=== PATIENT | female | born 1985 | race Caucasian/White ===

== ENCOUNTER 2018-04-03 14:35 | Observation (INO) ==
[2018-04-03] MEDS ORDERED: *HR* FentaNYL (PF) 100 MCG/2 ML VIAL IVP ONE ×2 (16:41→18:46)
[2018-04-03 16:55] LABS: Basophils # 0.1 K/mcL (0.0-0.2); Basophils % 0.3 %; Eosinophils % 0.1 %; Hematocrit 41.3 % (35.3-44.9); Hemoglobin 14.2 g/dL (11.5-15.4); Immature Granulocytes % 0.7 % (0-4); Lymphocytes # 1.5 K/mcL (0.6-4.6); Lymphocytes % 7.4 %; Mean Corpuscular HGB Conc 34.4 g/dL (31.6-35.5); Mean Corpuscular Hemoglobin 29.5 pg (28.0-33.3); Mean Corpuscular Volume 85.7 fL (83.0-100.0); Mean Platelet Volume 9.7 fL (9.4-12.4); Monocytes # 1.5 K/mcL (0.0-1.3); Monocytes % 7.5 %; Neutrophils # 17.2 K/mcL (1.6-8.9); Platelet Count 302 K/mcL (140-400); Red Blood Count 4.82 M/mcL (3.82-4.97); Red Cell Distribution Width 12.7 % (11.5-14.5)
[2018-04-03 17:14] LABS: Alanine Aminotransferase 40 Units/L (7-52); Albumin 4.5 g/dL (3.5-5.7); Albumin/Globulin Ratio 1.6 (1.1-2.2); Alkaline Phosphatase 58 Units/L (34-104); Aspartate Amino Transferase 32 Units/L (13-39); BUN/Creatinine Ratio 20 (6-26); Bilirubin,Total 0.6 mg/dL (0.3-1.0); Blood Urea Nitrogen 13 mg/dL (6-20); Calcium 9.3 mg/dL (8.6-10.3); Carbon Dioxide 24 mEq/L (23-29); Chloride 101 mEq/L (98-107); Globulin 2.9 g/dL (2.4-3.5); Glucose 136 mg/dL (70-105); Osmolality,Calculated 290 (280-300); Potassium 3.9 mEq/L (3.5-5.1); Sodium 139 mEq/L (136-145); Total Protein 7.4 g/dL (6.4-8.9); eGFR For Non-African Americans > 60 (> 60)
[2018-04-03] MEDS ORDERED: Isovue-370 500 ML INFUS..BTL IV ONE (17:20)
[2018-04-03 18:38] LABS: Bilirubin,Urine Negative (Negative); Blood,Urine Negative (Negative); Clarity,Urine Cloudy (Clear); Color,Urine Yellow (Yellow); Glucose,Urine (UA) Normal (Normal); Ketones,Urine Negative (Negative); Leukocyte Esterase,Urine Trace (Negative); Nitrite,Urine Negative (Negative); PH,Urine 7.5 pH Units (5.0-8.0); Protein,Urine 100 mg/dL (Neg-Trace); Specific Gravity,Urine 1.028 (1.010-1.025); Urobilinogen,Urine Normal (Normal)
[2018-04-03 18:40] LABS: Bacteria,Urine Many per hpf (None-Few); Squamous Epithelial Cell,Urine Many per lpf (None-Few); WBC,Urine 0-3 per hpf (0-3)
[2018-04-03] MEDS ORDERED: Piperacillin/Tazobactam 3.375 GM in 0.9 % Sodium Chloride Mini Bag 100 ML IVPB ONE (18:56)
[2018-04-03] MEDS ORDERED: 0.9 % Sodium Chloride 2,000 ML ONE (19:24)
[2018-04-03] MEDS: 0.9 % Sodium Chloride 1,000 ML IVC SCH ×2 (19:34→20:35)
--- NOTE | 2018-04-03 19:38 | Emergency Department Note ---
Disposition Clinical Impression: Acute appendicitis Qualifiers: Acute appendicitis type: with localized peritonitis Appendicitis gangrene presence: without gangrene Appendicitis perforation presence: without perforation Appendicitis abscess presence: without abscess Qualified Code(s): K35.30 - Acute appendicitis with localized peritonitis, without perforation or gangrene Disposition: Admitted As Inpatient Condition: Fair Referrals: Rishi Mustafa MD [Primary Care Provider] - Forms: ED Satisfaction Letter, Work/School Release General Adult HPI - General Chief complaint: ED Abdominal Pain Stated complaint: abd pain Time Seen by Provider: 04/03/18 15:57 Source: patient Limitations: no limitations Nursing Notes Reviewed: Yes Vital Signs Reviewed: Yes - History of Present Illness HPI Narrative: Patient is a 32-year-old female who presents the emergency department with complaints of abdominal pain primarily right-sided as well as nausea and 11 episodes of vomiting which started this morning. She states the abdominal pain is worsened by movement in the drive in an improved by nothing though he she has tried no medications for her pain. She denies any possibility of her being . She denies any fever, diarrhea, chest pain, shortness of breath, vaginal discharge or bleeding, dysuria or hematuria. She denies any sick contacts. Yesterday she had a meal of [place] food but no one else who consumes food has been found to be ill. Pain Scale: 8 - Related Data Home Medications Medication Instructions Recorded Confirmed Buspirone HCl [Buspar] 15 mg PO TID 04/03/18 04/03/18 Paroxetine [Paxil] 30 mg PO DAILY 04/03/18 04/03/18 Quetiapine Fumarate [Seroquel] 400 mg PO HS 04/03/18 04/03/18 Venlafaxine XR (24 HR) [Effexor XR] 75 mg PO DAILY 04/03/18 04/03/18 clonazePAM [Klonopin] 1 mg PO TID 04/03/18 04/03/18 Allergies Allergy/AdvReac Type Severity Reaction Status Date / Time No Known Allergies Allergy Verified 04/03/18 15:05 Review of Systems: Pertinent positives and negatives reviewed in history of present illness. All other systems reviewed and are negative or normal. Past Medical History - Past Medical History Medical history: Reports: non-contributory Surgical history: Reports: non-contributory, Psychiatric history: Reports: no psych history - Social History Smoking Status: Never smoker Smokeless Tobacco Status: No Alcohol use: Reports: none Drug use: Reports: none Physical Exam Patient's an obese white female who appears uncomfortable on exam. Tearful. - General Limitations: no limitations General appearance: alert, in distress, obese - Head Head exam: atraumatic, normocephalic - Neck Neck exam: Present: normal inspection, trachea midline - Chest Chest inspection: Present: normal inspection, symmetric chest wall rise - Respiratory Respiratory exam: Present: normal lung sounds bilaterally - Cardiovascular Cardiovascular exam: Present: regular rate, normal rhythm, normal heart sounds - Abdominal Exam Abdominal exam: Present: soft, tenderness (Right upper quadrant and right lower quadrant), normal bowel sounds, tenderness at McBurney's Point. Absent: distention, guarding, rebound, rigidity, Rovsing's sign - Extremities Exam Extremities exam: Present: normal inspection. Absent: pedal edema - Back Exam Back exam: Absent: CVA tenderness (R), CVA tenderness (L) - Neurological Exam Neurological exam: Present: alert, oriented X3 - Psychiatric Psychiatric exam: Present: normal affect, normal mood - Skin Skin exam: Present: warm, dry, intact Course Course Narrative: Uncomfortable appearing 32-year-old. She is tachycardic. Pain primarily in the right upper and lower quadrant. We will obtain CBC, CMP, UA, urine test. May require right upper quadrant ultrasound versus CT abdomen to rule out appendicitis versus cholecystitis. - Reevaluation(s) Reevaluation #1: CT findings significant for acute appendicitis. Discussed case with general surgery, Dr. Hughes who will come to evaluate the patient Time: 18:52 Reevaluation #2: General surgery in the ED to assess the patient and will accept admission. We will give 2 L bolus in the meantime. Time: 19:21 Vital Signs Temperature 98.2 F 04/03/18 15:04 Pulse Rate 125 04/03/18 15:04 Respiratory Rate 20 04/03/18 15:04 Blood Pressure 187/102 04/03/18 15:04 O2 Sat by Pulse Oximetry 96 04/03/18 15:04 Temperature 98.2 F 04/03/18 16:13 Pulse Rate 124 04/03/18 18:14 Respiratory Rate 18 04/03/18 18:14 Blood Pressure 132/77 04/03/18 18:14 O2 Sat by Pulse Oximetry 98 04/03/18 18:14 Oxygen Delivery Oxygen Delivery Room Air Medical Decision Making - MDM Narrative Medical decision making narrative: 32-year-old female presenting with multiple episodes of nausea vomiting and right lower quadrant pain. Physical exam significant for pain at McBurney's point as well as equivocal Oliveira sign. She significantly tachycardic and tearful on exam. CBC reveals leukocytosis to 20.5 with a left shift, urine test negative, LFTs negative. CT abdomen reveals acute appendicitis without, patient. Patient made nothing by mouth though her last meal was last night. 1 g Mefoxin given. Discussed case with general surgery who will come to evaluate the patient to determine need for immediate surgery - Medical Records Medical records reviewed: Yes I reviewed the patient's medical records. - Lab Data Lab results reviewed: Yes I reviewed the patient's lab results. Result diagrams: 04/03/18 16:43 04/03/18 16:43 Lab Results 04/03/18 04/03/18 04/03/18 Range/Units 16:43 16:43 16:43 WBC 20.5 H (4.3-11.1) K/mcL RBC 4.82 (3.82-4.97) M/mcL Hgb 14.2 (11.5-15.4) g/dL Hct 41.3 (35.3-44.9) % MCV 85.7 (83.0-100.0) fL MCH 29.5 (28.0-33.3) pg MCHC 34.4 (31.6-35.5) g/dL RDW 12.7 (11.5-14.5) % Plt Count 302 (140-400) K/mcL MPV 9.7 (9.4-12.4) fL Immature Gran % 0.7 (0-4) % Seg Neutrophils % 84.0 % Lymphocytes % 7.4 % Monocytes % 7.5 % Eosinophils % 0.1 % Basophils % 0.3 % Neutrophils # 17.2 H (1.6-8.9) K/mcL Lymphocytes # 1.5 (0.6-4.6) K/mcL Monocytes # 1.5 H (0.0-1.3) K/mcL Eosinophils # 0.0 (0.0-0.6) K/mcL Basophils # 0.1 (0.0-0.2) K/mcL Sodium 139 (136-145) mEq/L Potassium 3.9 (3.5-5.1) mEq/L Chloride 101 (98-107) mEq/L Carbon Dioxide 24 (23-29) mEq/L BUN 13 (6-20) mg/dL Creatinine 0.64 (0.60-1.20) mg/dL Est GFR ( Amer) > 60 (> 60) Est GFR (Non-Af Amer) > 60 (> 60) BUN/Creatinine Ratio 20 (6-26) Glucose 136 H (70-105) mg/dL Calculated Osmolality 290 (280-300) Calcium 9.3 (8.6-10.3) mg/dL Total Bilirubin 0.6 (0.3-1.0) mg/dL AST 32 (13-39) Units/L ALT 40 (7-52) Units/L Alkaline Phosphatase 58 (34-104) Units/L Serum Total Protein 7.4 (6.4-8.9) g/dL Albumin 4.5 (3.5-5.7) g/dL Globulin 2.9 (2.4-3.5) g/dL Albumin/Globulin Ratio 1.6 (1.1-2.2) Serum , Qual Negative (Negative) Urine Color (Yellow) Urine Clarity (Clear) Urine pH (5.0-8.0) pH Units Ur Specific [place] (1.010-1.025) Urine Protein (Neg-Trace) mg/dL Urine Glucose (UA) (Normal) mg/dL Urine Ketones (Negative) mg/dL Urine Blood (Negative) Urine Nitrite (Negative) Urine Bilirubin (Negative) Urine Urobilinogen (Normal) mg/dL Ur Leukocyte Esterase (Negative) Urine Microscopic RBC (0-3) per hpf Urine Microscopic WBC (0-3) per hpf Ur Squamous Epith Cells (None-Few) per lpf Urine Bacteria (None-Few) per hpf Ur Culture Indicated? (NO) 04/03/18 Range/Units 18:20 WBC (4.3-11.1) K/mcL RBC (3.82-4.97) M/mcL Hgb (11.5-15.4) g/dL Hct (35.3-44.9) % MCV (83.0-100.0) fL MCH (28.0-33.3) pg MCHC (31.6-35.5) g/dL RDW (11.5-14.5) % Plt Count (140-400) K/mcL MPV (9.4-12.4) fL Immature Gran % (0-4) % Seg Neutrophils % % Lymphocytes % % Monocytes % % Eosinophils % % Basophils % % Neutrophils # (1.6-8.9) K/mcL Lymphocytes # (0.6-4.6) K/mcL Monocytes # (0.0-1.3) K/mcL Eosinophils # (0.0-0.6) K/mcL Basophils # (0.0-0.2) K/mcL Sodium (136-145) mEq/L Potassium (3.5-5.1) mEq/L Chloride (98-107) mEq/L Carbon Dioxide (23-29) mEq/L BUN (6-20) mg/dL Creatinine (0.60-1.20) mg/dL Est GFR ( Amer) (> 60) Est GFR (Non-Af Amer) (> 60) BUN/Creatinine Ratio (6-26) Glucose (70-105) mg/dL Calculated Osmolality (280-300) Calcium (8.6-10.3) mg/dL Total Bilirubin (0.3-1.0) mg/dL AST (13-39) Units/L ALT (7-52) Units/L Alkaline Phosphatase (34-104) Units/L Serum Total Protein (6.4-8.9) g/dL Albumin (3.5-5.7) g/dL Globulin (2.4-3.5) g/dL Albumin/Globulin Ratio (1.1-2.2) Serum , Qual (Negative) Urine Color Yellow (Yellow) Urine Clarity Cloudy A (Clear) Urine pH 7.5 (5.0-8.0) pH Units Ur Specific [place] 1.028 H (1.010-1.025) Urine Protein 100 H (Neg-Trace) mg/dL Urine Glucose (UA) Normal (Normal) mg/dL Urine Ketones Negative (Negative) mg/dL Urine Blood Negative (Negative) Urine Nitrite Negative (Negative) Urine Bilirubin Negative (Negative) Urine Urobilinogen Normal (Normal) mg/dL Ur Leukocyte Esterase Trace H (Negative) Urine Microscopic RBC 3-5 H (0-3) per hpf Urine Microscopic WBC 0-3 (0-3) per hpf Ur Squamous Epith Cells Many H (None-Few) per lpf Urine Bacteria Many H (None-Few) per hpf Ur Culture Indicated? NO. A (NO) - Radiology Data Radiology results reviewed: Yes I reviewed the patient's radiology results. Attestation Statement - Attestation Attestation: I examined this patient and my medical decision-making was reviewed with the Resident Physician, Dr. Her. I agree with the documented findings, disposition and treatment plan as described except to the extent set forth below. Patient is a 32-year-old white female who presents seem or permit today with right-sided abdominal pain and intractable nausea and vomiting since waking this morning. Patient denies any fevers or chills felt fine at the time that she went to bed, no associated diarrhea. No urinary symptoms or flank pain. Patient is tachycardic and hypertensive on arrival but appears uncomfortable secondary to discomfort in the right side of her belly. I agree with patient's physical exam findings as documented. She underwent full lab evaluation, urinalysis with test, CT abdomen and pelvis imaging and received IV pain and nausea medications as well as IV fluids for the tachycardia. Patient's lab evaluation shows a leukocytosis with left shift otherwise within normal limits. CT abdomen and pelvis shows acute appendicitis without, locati on. Patient was made nothing by mouth IV antibiotics were initiated IV fluids were continued and Dr. Hughes was contacted assaulted for surgical management. She came to evaluate the patient in the ED and will take the patient to the OR for an appendectomy. Patient was admitted to the surgical service.
[2018-04-03] MEDS ORDERED: Lidocaine -MPF 4% 5 ML AMPUL ONE (19:47)
[2018-04-03] MEDS ORDERED: Propofol 500 MG/50 ML INFUS..BTL ONE (19:47)
[2018-04-03] MEDS ORDERED: *HR* Succinylcholine 200 MG/10 ML VIAL IVP ONE (19:47)
[2018-04-03] MEDS ORDERED: Lidocaine -MPF 2% 2 ML VIAL ONE (19:47)
[2018-04-03] MEDS ORDERED: *HR* Rocuronium Bromide 50 MG/5 ML VIAL ONE (19:47)
--- NOTE | 2018-04-03 19:48 | General Surg History&Physical ---
Date of Encounter: 04/03/18 Time of Encounter: 19:39 Assessment and Plan (1) Acute appendicitis Current Visit: Yes Status: Acute The assessment and plan as outlined above was discussed with the patient and/or family members who expressed understanding and agreement. All questions were answered. discussed with patient CT scan images, labs and her physical findings, she has acute appendicitis, will plan laparoscopic appendectomy, possible open, risks and benefits discussed and she wishes to proceed npo prn pain control ivf hydration prn antiemetics gi/dvt prophylaxis ok to continue home medication antibiotics Qualifiers: Acute appendicitis type: with localized peritonitis Appendicitis gangrene presence: without gangrene Appendicitis perforation presence: without perforation Appendicitis abscess presence: without abscess Qualified Code(s): K35.30 - Acute appendicitis with localized peritonitis, without p erforation or gangrene (2) Leukocytosis Current Visit: Yes Status: Acute The assessment and plan as outlined above was discussed with the patient and/or family members who expressed understanding and agreement. All questions were answered. antibiotics trend wbc Qualifiers: Leukocytosis type: unspecified Qualified Code(s): D72.829 - Elevated white blood cell count, unspecified (3) Anxiety Current Visit: Yes Status: Chronic The assessment and plan as outlined above was discussed with the patient and/or family members who expressed understanding and agreement. All questions were answered. ok to continue home meds History of Present Illness Chief complaint: abdominal pain HPI: Ms. Ojeda is a 32 year old female who started having sharp achy RLQ pain this am. She had nausea and emesis this am, no nausea currently. She denies fevers or chills but is having sweats. Denies diarrhea. No dysuria. Presented to ED due to the pain. CT scan showed uncomplicated acute appendicitis with elevated WBC at 20. Past Med Surg Social Fam HX - Past Medical History Source: patient Medical history: non-contributory, other (obesity) Psychiatric history: anxiety - Past Surgical History Surgical History: (x3), other (sinus surgery second to polyps) - Social History Smoking Status: Never smoker Smokeless Tobacco Status: No Alcohol use: none Drug use: none Current living situation: Home - Independent, With Family Activity Level: Independent ambulation - Family History Grandmother History Unknown: Yes Medications and Allergies Buspirone HCl [Buspar] 15 mg PO TID 04/03/18 [History] Paroxetine [Paxil] 30 mg PO DAILY 04/03/18 [History] Quetiapine Fumarate [Seroquel] 400 mg PO HS 04/03/18 [History] Venlafaxine XR (24 HR) [Effexor XR] 75 mg PO DAILY 04/03/18 [History] clonazePAM [Klonopin] 1 mg PO TID 04/03/18 [History] Allergy/AdvReac Type Severity Reaction Status Date / Time No Known Allergies Allergy Verified 04/03/18 15:05 Review of Systems All systems PM: reviewed and no additional remarkable complaints except as stated All systems PM: The remainder of the systems were reviewed and are negative General Surgery Exam Initial Vital Signs Temp Pulse Resp BP Pulse Ox 98.2 F 125 20 187/102 96 04/03/18 15:04 04/03/18 15:04 04/03/18 15:04 04/03/18 15:04 04/03/18 15:04 - General physical appearance well developed, moderate distress, moderate pain, obese - Eyes PERRL, normal ocular movement - ENT normal mucosa, normocephalic - Neck trachea midline - Respiratory normal expansion, clear to auscultation - Cardiovascular Cardiovascular exam: Present: tachycardia, no murmurs/rubs/gallops - Abdomen Abdomen general surgery: Present: soft, tender. Absent: bowel sounds present, distended, guarding, rebound Abdominal Tenderness: Present: RLQ - Integumentary Integumentary general surgery: Present: diaphoresis - Neurologic Present: CN 2-12 grossly intact - Musculoskeletal Present: normal posture - Psychiatric Psychiatric general surgery: Present: A&Ox3, speech is normal Results - Labs 04/03/18 16:43 04/03/18 16:43 Abnormal lab results WBC 20.5 K/mcL (4.3-11.1) H 04/03/18 16:43 Neutrophils # 17.2 K/mcL (1.6-8.9) H 04/03/18 16:43 Monocytes # 1.5 K/mcL (0.0-1.3) H 04/03/18 16:43 Glucose 136 mg/dL (70-105) H 04/03/18 16:43 Urine Clarity Cloudy (Clear) A 04/03/18 18:20 Ur Specific [place] 1.028 (1.010-1.025) H 04/03/18 18:20 Urine Protein 100 mg/dL (Neg-Trace) H 04/03/18 18:20 Ur Leukocyte Esterase Trace (Negative) H 04/03/18 18:20 Urine Microscopic RBC 3-5 per hpf (0-3) H 04/03/18 18:20 Ur Squamous Epith Cells Many per lpf (None-Few) H 04/03/18 18:20 Urine Bacteria Many per hpf (None-Few) H 04/03/18 18:20 Ur Culture Indicated? NO. (NO) A 04/03/18 18:20 Diabetes panel 04/03/18 Range/Units 16:43 Sodium 139 (136-145) mEq/L Potassium 3.9 (3.5-5.1) mEq/L Chloride 101 (98-107) mEq/L Carbon Dioxide 24 (23-29) mEq/L BUN 13 (6-20) mg/dL Creatinine 0.64 (0.60-1.20) mg/dL Glucose 136 H (70-105) mg/dL Calcium 9.3 (8.6-10.3) mg/dL AST 32 (13-39) Units/L ALT 40 (7-52) Units/L Alkaline Phosphatase 58 (34-104) Units/L Albumin 4.5 (3.5-5.7) g/dL Calcium panel 04/03/18 Range/Units 16:43 Calcium 9.3 (8.6-10.3) mg/dL Albumin 4.5 (3.5-5.7) g/dL Pituitary panel 04/03/18 Range/Units 16:43 Sodium 139 (136-145) mEq/L Potassium 3.9 (3.5-5.1) mEq/L Chloride 101 (98-107) mEq/L Carbon Dioxide 24 (23-29) mEq/L BUN 13 (6-20) mg/dL Creatinine 0.64 (0.60-1.20) mg/dL Glucose 136 H (70-105) mg/dL Calcium 9.3 (8.6-10.3) mg/dL Adrenal panel 04/03/18 Range/Units 16:43 Sodium 139 (136-145) mEq/L Potassium 3.9 (3.5-5.1) mEq/L Chloride 101 (98-107) mEq/L Carbon Dioxide 24 (23-29) mEq/L BUN 13 (6-20) mg/dL Creatinine 0.64 (0.60-1.20) mg/dL Glucose 136 H (70-105) mg/dL Calcium 9.3 (8.6-10.3) mg/dL Total Bilirubin 0.6 (0.3-1.0) mg/dL AST 32 (13-39) Units/L ALT 40 (7-52) Units/L Alkaline Phosphatase 58 (34-104) Units/L Albumin 4.5 (3.5-5.7) g/dL All other labs normal. - Imaging CT scan - abdomen: report reviewed, image reviewed CT scan - pelvis: report reviewed, image reviewed
--- NOTE | 2018-04-03 19:48 | Anesthesia Evaluation PreOp ---
Date of Encounter: 04/03/18 Time of Encounter: 19:44 - Past History Planned Operation: Lap appendectomy Cardiac History: Denies any Significant Hx Pulmonary History: Denies Any Significant HX [employer]MENT History: Other (anxiety, depression) Other Medical History: Denies Any Significant HX, Other (BMI 49) Anesthesia History: No Prior Anesthetic Complications, Past Anesthesia (sinus, csection) Test: Negative (today) Alcohol Use: none Drug use: none Medications and Allergies Buspirone HCl [Buspar] 15 mg PO TID 04/03/18 [History] Paroxetine [Paxil] 30 mg PO DAILY 04/03/18 [History] Quetiapine Fumarate [Seroquel] 400 mg PO HS 04/03/18 [History] Venlafaxine XR (24 HR) [Effexor XR] 75 mg PO DAILY 04/03/18 [History] clonazePAM [Klonopin] 1 mg PO TID 04/03/18 [History] Allergy/AdvReac Type Severity Reaction Status Date / Time No Known Allergies Allergy Verified 04/03/18 15:05 - Meds/Allergy Pre-op Review Medications Reviewed: Yes Allergies Reviewed: Yes Beta Blockers on Current Med List: No Anesthesia Results - Labs 04/03/18 16:43 04/03/18 16:43 Anesthesia Exam Vital Signs/O2 Sat, Most Current Temp Pulse Resp BP Pulse Ox 98.2 F 124 18 132/77 98 04/03/18 16:13 04/03/18 18:14 04/03/18 18:14 04/03/18 18:14 04/03/18 18:14 Weight: 127kg NPO (# of Hours): >8 - HEENT Pupil (Motor): Pupils equal, EOMI Mallampati: III Oral Opening: Greater than 3 - [employer] LOC: Oriented [employer] Motor: Normal RUE, Normal LUE, Normal RLE, Normal LLE, Normal Face [employer] Sensory: Normal: RUE, LUE, RLE, LLE, Face - Cardiac Rhythm: Regular - Pulmonary Breath Sounds: bilateral Clear Respiratory Effort: Symmetrical Anesthesia Assess/Plan ASA Score: 3 (BMI 49), E Modified Madelyn Scale for Level of Consciousness: Cooperative, oriented, and tranquil Anesthetic Plan: General (GETA with RSI) Monitoring Plan: Standard Monitors Recovery Plan: PACU
[2018-04-03] MEDS ORDERED: *HR* FentaNYL (PF) 100 MCG/2 ML VIAL ONE ×2 (19:49→21:57)
[2018-04-03] MEDS ORDERED: Acetaminophen IV 1,000 MG/100 ML INFUS..BTL ONE (20:57)
[2018-04-03] MEDS ORDERED: SUGAMMADEX SODIUM 500 MG/5 ML VIAL IV ONE (21:05)
[2018-04-03] MEDS ORDERED: *HR* HYDROmorphone (PF) 1 MG/ML SYRINGE IVP PRN (21:23)
[2018-04-03] MEDS ORDERED: *HR* Promethazine 25 MG/ML VIAL IVP PRN ×2 (21:23→23:00)
[2018-04-03] MEDS ORDERED: *HR* Meperidine 25 MG/ML SYRINGE IVP PRN (21:23)
[2018-04-03] MEDS ORDERED: *HR* OxyCODONE Immed Rel 5 MG TABLET PO PRN (21:23)
[2018-04-03] MEDS ORDERED: Ondansetron 4 MG/2 ML VIAL IVP ONE (21:23)
[2018-04-03] MEDS ORDERED: Ringers Solution, Lactated 1,000 ML IVC SCH (21:30)
--- NOTE | 2018-04-03 22:26 | Operative Note ---
Date of procedure: 04/03/18 Pre-op diagnosis: Acute appendicitis Post-op diagnosis: same Procedure: Laparoscopic appendectomy Complications: none immediate Anesthesia: GETA, local Local Anesthetics: 0.5% Sensorcaine HCL SubQ (cc) (30) Surgeon: April Sawyer Was there an environmental engineering assistant present: No Crane Engineer Other: Maddie Riley Estimated blood loss (cc): 10 Specimen: appendix Condition: stable Disposition: PACU Procedure in Detail: The patient was brought into the operating suite and placed supine on the operating table. Sign-in was performed and everyone was in agreement. Anesthesia was induced and patient was endotracheally intubated by anesthesia without incident. An OG tube was placed by anesthesia. The abdomen was prepped and draped in the usual sterile fashion. A timeout was performed and again everyone was in agreement. A supraumbilical incision was made through the skin and the subcutaneous tissue with an 11 blade. Towel clamps were placed on either side of the umbilicus for retraction. S-retractors were used to dissect down to the anterior abdominal wall linea alba fascia. A Veress needle was placed into this incision and a water drop test confirmed placement and the ab domen was insufflated. We then entered the abdomen with the 5 mm 0 degree laparoscope on a 5 mm X-theresa trocar. The area under entry was visualized and there was no bleeding and no apparent bowel injury. We placed a suprapubic 5 mm port under direct visualization after first incising the skin with an 11 blade. The laparoscope was placed through this and we exchanged the supraumbilical port for a 12 mm port under direct visualization. We then placed another 5 mm port in the left lower quadrant position under direct visualization after first incising the skin with an 11 blade. The patient was placed in slight Trendelenburg left side down position. The cecum was located as was the appendix. The appendix was grasped and retracted anteriorly and caudally with a laparoscopic Naun. A [place] was used to dissect between the mesoappendix and the appendix at the base of the cecum. The mesoappendix was transected with a laparoscopic flex-ex ETS stapler using a white load x2. The appendix was transected at the base of the cecum with the same stapler utilizing a white load x2. The appendix was placed in a laparoscopic Endo Catch bag and removed via the supraumbilical incision site. Both staple lines were evaluated and there was no bleeding and both staple lines were intact. The area was irrigated with sterile saline which was then suctioned free from the abdomen. The insufflation was suctioned free from the abdomen and all trochars removed. We closed the abdominal wall at the supraumbilical incision site with an 0 Vicryl [id number] stitch. A 30 cc of 0.5% Marcaine was injected subcutaneously at the 3 port sites. The skin at the two 5 mm port sites was closed with 4-0 Monocryl interrupted subcuticular stitches. The skin at the supraumbilical incision site was closed with a 4-0 Monocryl running subcuticular stitch. Steri-Strips were applied to the wounds. The patient was extubated in the OR and tolerated the procedure well and was taken to PACU after all lap and instrument counts were correct at the end of the case.
[2018-04-03] MEDS ORDERED: Ondansetron 4 MG/2 ML VIAL IVP PRN (23:00)
[2018-04-03] MEDS ORDERED: Naloxone 0.4 MG/ML INJ IVP PRN (23:00)
[2018-04-03] MEDS ORDERED: OXYCODONE Oral CONC 10 MG/0.5 ML ORAL.SYG SL PRN (23:00)
[2018-04-03] MEDS ORDERED: Acetaminophen IV 1,000 MG/100 ML INFUS..BTL IVPB ONE (23:00)
--- NOTE | 2018-04-03 23:15 | Anesthesia Evaluation Post Op ---
Date of Encounter: 04/03/18 Time of Encounter: 23:14 - Vital Signs Vital Signs: Vital Signs/O2 Sat, Most Current Temp Pulse Resp BP Pulse Ox 99.3 F 118 18 131/70 95 04/03/18 23:04 04/03/18 23:04 04/03/18 23:04 04/03/18 23:04 04/03/18 23:04 - Lungs Lungs: Clear Ascult./Percussion - Airway Airway: Non-obstructed - Cardiovascular Regular Rate - Mental Status Mental Status: Alert & Oriented, Answers Appropriately - Pain Pain Scale: 0 Pain Scale used: Numeric (1 - 10) - Nausea Vomiting Nausea Vomiting: Not Present - Hydration Hydration: Ice chips - Discharge PostOp Status: Transfer Patient to floor
[2018-04-04] MEDS: 0.9 % Sodium Chloride 1,000 ML IVC SCH ×2 (00:04→15:47)
[2018-04-04] MEDS: Piperacillin/Tazobactam 3.375 GM in 0.9 % Sodium Chloride Mini Bag 100 ML IVPB SCH ×3 (00:51→15:46)
[2018-04-04 06:09] LABS: Basophils % 0.2 %; Eosinophils % 0.1 %; Hematocrit 38.1 % (35.3-44.9); Hemoglobin 12.8 g/dL (11.5-15.4); Immature Granulocytes % 0.8 % (0-4); Lymphocytes # 1.6 K/mcL (0.6-4.6); Lymphocytes % 8.5 %; Mean Corpuscular HGB Conc 33.6 g/dL (31.6-35.5); Mean Corpuscular Hemoglobin 29.8 pg (28.0-33.3); Mean Corpuscular Volume 88.6 fL (83.0-100.0); Mean Platelet Volume 9.7 fL (9.4-12.4); Monocytes % 5.5 %; Neutrophils # 15.6 K/mcL (1.6-8.9); Platelet Count 290 K/mcL (140-400); Red Cell Distribution Width 13.4 % (11.5-14.5); Segmented Neutrophils % 84.9 %
[2018-04-04 06:29] LABS: BUN/Creatinine Ratio 18 (6-26); Blood Urea Nitrogen 11 mg/dL (6-20); Calcium 8.6 mg/dL (8.6-10.3); Carbon Dioxide 26 mEq/L (23-29); Chloride 106 mEq/L (98-107); Glucose 152 mg/dL (70-105); Osmolality,Calculated 294 (280-300); Sodium 141 mEq/L (136-145); eGFR For Non-African Americans > 60 (> 60)
[2018-04-04] MEDS ORDERED: Pantoprazole 40 MG VIAL IVP SCH (09:00)
--- NOTE | 2018-04-04 10:07 | Discharge Summary ---
<April Sawyer - Last Filed: 04/04/18 10:05> Orders not resulted at time of discharge: Pending orders 04/03/18 22:19 Surgical Pathology [PTH] Routine Date of Encounter: 04/04/18 Time of Encounter: 10:08 - Discharge Diagnosis (1) Acute appendicitis Priority: Primary Status: Acute Qualifiers: Acute appendicitis type: with localized peritonitis Appendicitis gangrene presence: without gangrene Appendicitis perforation presence: without perforation Appendicitis abscess presence: without abscess Qualified Code(s): K35.30 - Acute appendicitis with localized peritonitis, without perforation or gangrene (2) Leukocytosis Priority: Secondary Status: Acute Qualifiers: Leukocytosis type: unspecified Qualified Code(s): D72.829 - Elevated white blood cell count, unspecified (3) Anxiety Priority: Secondary Status: Chronic General Surgery Exam Initial Vital Signs Temp Pulse Resp BP Pulse Ox 98.2 F 125 20 187/102 96 04/03/18 15:04 04/03/18 15:04 04/03/18 15:04 04/03/18 15:04 04/03/18 15:04 - General physical appearance well developed, well nourished, no distress, moderate pain, obese - Eyes PERRL, normal ocular movement - ENT normal mucosa, normocephalic - Respiratory normal expansion, normal respiratory effort - Cardiovascular Cardiovascular exam: Present: tachycardia - Abdomen Abdomen general surgery: Present: bowel sounds present, soft, tender (appropriate post op tenderness). Absent: distended, guarding, rebound - Incision Incision: Present: clean and dry, intact - Integumentary Integumentary general surgery: Present: warm and dry - Neurologic Present: CN 2-12 grossly intact - Musculoskeletal Present: normal posture - Psychiatric Psychiatric general surgery: Present: A&Ox3, speech is normal - Hospital Course Hospital course: Ms. Ojeda is a 32 year old female admitted with acute appendicitis. She underwent an uncomplicated laparoscopic appendectomy on 04/03/2018. She was treated with antibiotics. Postoperatively she felt significantly improved abdominal pain. Postoperatively she was tolerating a diet, ambulating well, having appropriate bowel and bladder function. She was discharged home in stable condition with prescriptions for Percocet, Colace, Bactrim. - Time Spent with Patient Total time spent providing and/or coordinating discharge services: Less than 30 minutes - Discharge Medications Prescriptions: OxyCODONE/APAP 5/325 [Percocet 5/325 MG] 1 each PO Q6HR PRN 7 Days #20 tablet PRN Reason: Pain Docusate [Colace] 100 mg PO BID #20 capsule Sulfamethoxazole/Trimeth DS [Bactrim DS] 1 each PO DAILY #10 tablet Home Medications: Buspirone HCl [Buspar] 15 mg PO TID 04/03/18 [History] Paroxetine [Paxil] 30 mg PO DAILY 04/03/18 [History] Quetiapine Fumarate [Seroquel] 400 mg PO HS 04/03/18 [History] Venlafaxine XR (24 HR) [Effexor XR] 75 mg PO DAILY 04/03/18 [History] clonazePAM [Klonopin] 1 mg PO TID 04/03/18 [History] Docusate [Colace] 100 mg PO BID #20 capsule 04/04/18 [Rx] OxyCODONE/APAP 5/325 [Percocet 5/325 MG] 1 each PO Q6HR PRN 7 Days #20 tablet 04/04/18 [Rx] Sulfamethoxazole/Trimeth DS [Bactrim DS] 1 each PO DAILY #10 tablet 04/04/18 [Rx] Allergies/Adverse Reactions: Allergy/AdvReac Type Severity Reaction Status Date / Time No Known Allergies Allergy Verified 04/03/18 15:05 Date of admission: 04/03/18 21:08 Primary care physician: Rishi Mustafa MD Discharging clinician: April Sawyer Anticipated date of discharge: 04/04/18 Labs on day of discharge: Labs from last 24 hours 04/04/18 04/04/18 04/03/18 05:34 05:34 18:20 WBC 18.3 H RBC 4.30 Hgb 12.8 Hct 38.1 MCV 88.6 MCH 29.8 MCHC 33.6 RDW 13.4 Plt Count 290 MPV 9.7 Immature Gran % 0.8 Seg Neutrophils % 84.9 Lymphocytes % 8.5 Monocytes % 5.5 Eosinophils % 0.1 Basophils % 0.2 Neutrophils # 15.6 H Lymphocytes # 1.6 Monocytes # 1.0 Eosinophils # 0.0 Basophils # 0.0 Sodium 141 Potassium 4.0 Chloride 106 Carbon Dioxide 26 BUN 11 Creatinine 0.62 Est GFR ( Amer) > 60 Est GFR (Non-Af Amer) > 60 BUN/Creatinine Ratio 18 Glucose 152 H Calculated Osmolality 294 Calcium 8.6 Total Bilirubin AST ALT Alkaline Phosphatase Serum Total Protein Albumin Globulin Albumin/Globulin Ratio Serum , Qual Urine Color Yellow Urine Clarity Cloudy A Urine pH 7.5 Ur Specific [place] 1.028 H Urine Protein 100 H Urine Glucose (UA) Normal Urine Ketones Negative Urine Blood Negative Urine Nitrite Negative Urine Bilirubin Negative Urine Urobilinogen Normal Ur Leukocyte Esterase Trace H Urine Microscopic RBC 3-5 H Urine Microscopic WBC 0-3 Ur Squamous Epith Cells Many H Urine Bacteria Many H Ur Culture Indicated? NO. A 04/03/18 04/03/18 04/03/18 16:43 16:43 16:43 WBC 20.5 H RBC 4.82 Hgb 14.2 Hct 41.3 MCV 85.7 MCH 29.5 MCHC 34.4 RDW 12.7 Plt Count 302 MPV 9.7 Immature Gran % 0.7 Seg Neutrophils % 84.0 Lymphocytes % 7.4 Monocytes % 7.5 Eosinophils % 0.1 Basophils % 0.3 Neutrophils # 17.2 H Lymphocytes # 1.5 Monocytes # 1.5 H Eosinophils # 0.0 Basophils # 0.1 Sodium 139 Potassium 3.9 Chloride 101 Carbon Dioxide 24 BUN 13 Creatinine 0.64 Est GFR ( Amer) > 60 Est GFR (Non-Af Amer) > 60 BUN/Creatinine Ratio 20 Glucose 136 H Calculated Osmolality 290 Calcium 9.3 Total Bilirubin 0.6 AST 32 ALT 40 Alkaline Phosphatase 58 Serum Total Protein 7.4 Albumin 4.5 Globulin 2.9 Albumin/Globulin Ratio 1.6 Serum , Qual Negative Urine Color Urine Clarity Urine pH Ur Specific [place] Urine Protein Urine Glucose (UA) Urine Ketones Urine Blood Urine Nitrite Urine Bilirubin Urine Urobilinogen Ur Leukocyte Esterase Urine Microscopic RBC Urine Microscopic WBC Ur Squamous Epith Cells Urine Bacteria Ur Culture Indicated? - Impressions ITS Impressions Abdomen/Pelvis CT 04/03/18 17:20 IMPRESSION: Findings compatible with acute appendicitis. D/ / Corwin Yates MD / Corwin Yates MD Interpreting Provider: Corwin Yates MD - Patient Status Disposition: Home, Self-Care Condition: Fair Overall status at discharge: patient is back to baseline - Ambulatory Orders Ambulatory Orders: Complete Blood Count [HEME] Time Frame: 1 Week, Facility: [facility], Location: Lab - Discharge Instructions Instructions: Laparoscopic Appendectomy (DC) Follow Up With: Rishi Mustafa MD [Primary Care Provider] - April Sawyer MD [Partnered Physician] - (in 1 week or Shital rocha) Additional Instructions: No lifting more than 20 pounds for 2 weeks. Okay to take a shower in 24 hours. No tub baths or pools for 1 week. Okay to ride in the car wearing a seatbelt and climb steps. No driving until off narcotics for 24 hours and able to react safely Remove Steri-Strips in 1 week Do not take pain medicine/narcotics on an empty stomach it will likely cause nausea and possibly vomiting. If pain medication is too strong okay to break in half - Diet and Activity Activity: increase activity as tolerated Diet: advance to your usual diet - Attending Attestation I examined this patient and my medical decision-making was reviewed with the Resident Physician. I agree with the documented findings, disposition and treatment plan as described except to the extent set forth below. <Tano Anna - Last Filed: 04/04/18 13:14> Orders not resulted at time of discharge: Pending orders 04/03/18 22:19 Surgical Pathology [PTH] Routine General Surgery Exam Initial Vital Signs Temp Pulse Resp BP Pulse Ox 98.2 F 125 20 187/102 96 04/03/18 15:04 04/03/18 15:04 04/03/18 15:04 04/03/18 15:04 04/03/18 15:04 - Hospital Course Hospital course: Ms. Ojeda is a 32 year old female - Time Spent with Patient Total time spent providing and/or coordinating discharge services: Date of admission: 04/03/18 21:08 Primary care physician: Rishi Mustafa MD Labs on day of discharge: Labs from last 24 hours 04/04/18 04/04/18 04/03/18 05:34 05:34 18:20 WBC 18.3 H RBC 4.30 Hgb 12.8 Hct 38.1 MCV 88.6 MCH 29.8 MCHC 33.6 RDW 13.4 Plt Count 290 MPV 9.7 Immature Gran % 0.8 Seg Neutrophils % 84.9 Lymphocytes % 8.5 Monocytes % 5.5 Eosinophils % 0.1 Basophils % 0.2 Neutrophils # 15.6 H Lymphocytes # 1.6 Monocytes # 1.0 Eosinophils # 0.0 Basophils # 0.0 Sodium 141 Potassium 4.0 Chloride 106 Carbon Dioxide 26 BUN 11 Creatinine 0.62 Est GFR ( Amer) > 60 Est GFR (Non-Af Amer) > 60 BUN/Creatinine Ratio 18 Glucose 152 H Calculated Osmolality 294 Calcium 8.6 Total Bilirubin AST ALT Alkaline Phosphatase Serum Total Protein Albumin Globulin Albumin/Globulin Ratio Serum , Qual Urine Color Yellow Urine Clarity Cloudy A Urine pH 7.5 Ur Specific [place] 1.028 H Urine Protein 100 H Urine Glucose (UA) Normal Urine Ketones Negative Urine Blood Negative Urine Nitrite Negative Urine Bilirubin Negative Urine Urobilinogen Normal Ur Leukocyte Esterase Trace H Urine Microscopic RBC 3-5 H Urine Microscopic WBC 0-3 Ur Squamous Epith Cells Many H Urine Bacteria Many H Ur Culture Indicated? NO. A 04/03/18 04/03/18 04/03/18 16:43 16:43 16:43 WBC 20.5 H RBC 4.82 Hgb 14.2 Hct 41.3 MCV 85.7 MCH 29.5 MCHC 34.4 RDW 12.7 Plt Count 302 MPV 9.7 Immature Gran % 0.7 Seg Neutrophils % 84.0 Lymphocytes % 7.4 Monocytes % 7.5 Eosinophils % 0.1 Basophils % 0.3 Neutrophils # 17.2 H Lymphocytes # 1.5 Monocytes # 1.5 H Eosinophils # 0.0 Basophils # 0.1 Sodium 139 Potassium 3.9 Chloride 101 Carbon Dioxide 24 BUN 13 Creatinine 0.64 Est GFR ( Amer) > 60 Est GFR (Non-Af Amer) > 60 BUN/Creatinine Ratio 20 Glucose 136 H Calculated Osmolality 290 Calcium 9.3 Total Bilirubin 0.6 AST 32 ALT 40 Alkaline Phosphatase 58 Serum Total Protein 7.4 Albumin 4.5 Globulin 2.9 Albumin/Globulin Ratio 1.6 Serum , Qual Negative Urine Color Urine Clarity Urine pH Ur Specific [place] Urine Protein Urine Glucose (UA) Urine Ketones Urine Blood Urine Nitrite Urine Bilirubin Urine Urobilinogen Ur Leukocyte Esterase Urine Microscopic RBC Urine Microscopic WBC Ur Squamous Epith Cells Urine Bacteria Ur Culture Indicated? - Impressions ITS Impressions Abdomen/Pelvis CT 04/03/18 17:20
[2018-04-04] MEDS: *HR* OxyCODONE/APAP 5/325 TABLET PO PRN ×2 (12:19→18:57)
[2018-04-04] MEDS ORDERED: cefOXitin 1,000 MG in Water for inj. (sterile) 20 ML 10 ML IVP ONE (18:46)
[2018-04-04 20:16] VITALS: BP 116/79
== END 2018-04-04 20:25 | disposition home or self-care (01) ==
LOC: 3ANU 14:35 → EMEROOARM 14:35 → 3ANU 20:48
PROVIDERS: ADMIT Surgery; ATTEND Surgery